=== PATIENT | male | born 1985 | race Caucasian/White ===

== ENCOUNTER 2017-07-14 19:10 | Emergency (ER) | payer MEDICARE, OTHER ==
[~2017-07-14 19:10] MED LIST: CLON1 PO; FENT25DI T-DERMAL; OLAN5 PO; RANI150 PO; TEMA15 PO; VENL-39 PO; VENL75XR PO; ZYPR20TA PO
[2017-07-14 19:35] VITALS: BP 142/83; PULSE 91; RESP 16; TEMP 98; O2SAT 96
[2017-07-14] MEDS ORDERED: DIAZ5 PO (19:46)
[2017-07-14] MEDS ORDERED: ACETAMINOPHEN/HYDROcodone 325 MG/5 MG TAB PO ONE (20:00)
--- NOTE | 2017-07-14 20:27 | RADRPT ---
EXAM DATE/TIME: 07/14/2017 20:18 [place] COMPARISON: No previous studies available for comparison. INDICATIONS : Pain on lateral portion of left foot. MEDICAL HISTORY : None. SURGICAL HISTORY : None. ENCOUNTER: Initial ACUITY: 1 day PAIN SCORE: 6/10 LOCATION: Left foot FINDINGS: Three view examination of the left foot demonstrates no soft tissue swelling, dislocation, or fractur e. The tarsal bones appear intact. The interphalangeal and metatarsophalangeal joints are intact. The calcaneus is intact. Bony mineralization is normal. CONCLUSION: Unremarkable exam with no underlying bony abnormality. Prince Preston MD on July 14, 2017 at 20:24 Board Certified Radiologist. This report was verified electronically.
--- NOTE | 2017-07-14 20:32 | PD ---
HPI Chief Complaint: Musculoskeletal Complaint Time Seen by Provider: 19:42 Travel History International Travel<30 days: No Contact w/Intl Traveler<30days: No Traveled to known affect area: No History of Present Illness HPI 32-year-old male presents to the emergency department with complaint of left lateral foot pain since Thursday upon waking up. Denies injury. He saw his primary care provider this morning and was given meloxicam which he turned into the pharmacy and is picking it up tomorrow. Denies fever, vomiting. Reports numbness and tingling to his fourth and fifth toe only with walking. Otherwise denies paresthesias, loss of sensation, decreased range of motion, decreased strength to the affected extremity. Denies swelling of the foot. Rates pain 8/ 10. Worse with walking and movement. Better at rest. Has tried Motrin, ice, rest, elevation with no relief of symptoms. Has a primary care provider but does not know the name. No known allergies. History of depression, anxiety, PTSD, irritability, TBI, severe migraines. Has no other medical complaints. No other modifying factors or associated signs and symptoms. PFSH Past Medical History Anxiety: Yes Depression: Yes Genitourinary: No Hypertension: Yes Musculoskeletal: No Neurologic: Yes Psychiatric: Yes (PTSD) Reproductive: No Respiratory: No Migraines: Yes (CHRONIC) Past Surgical History Other Surgery: No Social History Alcohol Use: No Tobacco Use: No Substance Use: Yes (marijuana) Allergies-Medications (Allergen,Severity, Reaction): Coded Allergies: No Known Allergies (Unverified , 10/06/15) Reported Meds & Prescriptions Reported Meds & Active Scripts Active Effexor-Xr (Venlafaxine HCl) 75 Mg Caper 150 Mg PO DAILY Reported Valium (Diazepam) 5 Mg Tab 5 Mg PO BID PRN Zyprexa (Olanzapine) 20 Mg Tab 10 Mg PO HS Review of Systems Except as stated in HPI: all other systems reviewed are Neg Physical Exam Narrative GENERAL: Well-nourished, well-developed male patient, in no acute distress SKIN: Warm and dry. HEAD: Atraumatic. Normocephalic. EYES: Pupils equal and round. No scleral icterus. No injection or drainage. ENT: Mucosa pink and moist. Airway patent. NECK: Trachea midline. CARDIOVASCULAR: Regular rate. RESPIRATORY: No accessory muscle use. GASTROINTESTINAL: Rounded. MUSCULOSKELETAL: Left foot with tenderness on palpation to the lateral aspect at the fourth and fifth metatarsal region; without erythema, edema, ecchymosis; no obvious deformities. Left lower extremity is supple and nontender with 2+ pedal pulse and sensory intact without erythema or edema. Left ankle is without tenderness on palpation. No obvious deformities. No clubbing. No cyanosis. No edema. NEUROLOGICAL: Awake and alert. Oriented 3. No obvious cranial nerve deficits. Motor grossly within normal limits. Normal speech. PSYCHIATRIC: Appropriate mood and affect; insight and judgment normal. Data Data Last Documented VS Vital Signs Date Time Temp Pulse Resp B/P (MAP) Pulse Ox O2 Delivery O2 Flow Rate FiO2 07/14/17 19:35 98.0 91 16 142/83 (102) 96 Orders Orders Foot, Complete ([id number]) (07/14/17 19:52) Acetamin-Hydrocod 325-5 Mg ([place]om 5-325 (07/14/17 20:00) Crutches (07/14/17 20:40) Ed Discharge Order (07/14/17 20:41) MDM Medical Decision Making Medical Screen Exam Complete: Yes Emergency Medical Condition: Yes Medical Record Reviewed: Yes Differential Diagnosis Plantar fasciitis, foot sprain, foot fracture, foot pain Narrative Course 32-year-old male with left lateral foot pain. Denies injury. Pearblossom and left foot x-ray ordered. 2031: Left foot x-ray with no acute findings. Patient provided a copy of the x- ray report. Instructed patient to follow-up with hvac specialist. Patient has meloxicam at the pharmacy for pain. Crutches and Vasiliy bandage provided for support. Instructed patient to follow up with primary care provider. Patient verbalizes understanding and agreement with treatment plan. Patient is medically cleared and stable for discharge. Discussed reasons to return to the emergency department. Patient agrees with treatment plan. The patients vital signs are stable and the patient is stable for outpatient follow-up and treatment. Patient discharged home, stable and in no acute distress. Diagnosis Primary Impression: Left foot pain Referrals: Hide Salter Primary Care Physician Patient Instructions: General Instructions Additional Instructions: Meloxicam as prescribed and as needed for pain Avoid aggravating activity Rest, ice, compress, elevate affected extremity Crutches/cane as needed for support Vasiliy bandage as needed for compression and support Follow-up with hvac specialist Follow-up with primary care provider Return to the emergency department immediately with worsening of symptoms Med/Other Pt SpecificInfo: No Change to Meds, No Meds Exist/No RX given Disposition: 01 DISCHARGE HOME Condition: Stable Shannon Sky Jul 14, 2017 20:32
== END 2017-07-14 20:52 | disposition home or self-care (01) ==
LOC: NEPK 19:10
DX: M79.672 Pain in left foot (principal); F12.90 Cannabis use, unspecified, uncomplicated; I10 Essential (primary) hypertension; F43.10 Post-traumatic stress disorder, unspecified; Z87.820 Personal history of traumatic brain injury; Z79.899 Other long term (current) drug therapy
CPT/HCPCS: 73630; 99283; E0113